=== PATIENT | male | born 1950 | race Caucasian/White ===

== ENCOUNTER 2020-09-05 11:13 | Emergency (ER) | payer BC, MEDICARE ==
--- NOTE | 2020-09-05 12:11 | EDM.PDOC ---
ED HPI GENERAL MEDICAL PROBLEM - General Chief Complaint: Cardiovascular Problem Stated Complaint: BLOOD PRESSURE IS HIGH FROM CLINIC Time Seen by Provider: 09/05/20 12:00 Source of Information: Reports: Patient, Old Records History Limitations: Reports: Other (sent from clinic, no clinic notes or call from the clinic on this referral.) - History of Present Illness INITIAL COMMENTS - FREE TEXT/NARRATIVE: 69 yo male here after he presented to the clinic for a refill of his Indocin for gout and the clinic found his BP was high and sent him to the ER. No one from the clinic notified us. His only sx is intermittent light-headedness which is not new. His gout is under control currently, but he is nearly out ot the Indocin. The clinic tried to send him by ambulance and he refused. Onset: Unknown/Unsure (BP normally not this high) Duration: Other (unknown) Location: Reports: Generalized Quality: Reports: Other (no pain) Severity: Moderate Improves with: Reports: None Worsens with: Reports: None Context: Reports: Other (See HPI) Associated Symptoms: Reports: Other (intermittent mild light-headedness) Treatments LEAD SUSTAINABILITY SPECIALIST: Reports: Other (see below) (none) - Related Data Allergies Allergy/AdvReac Type Severity Reaction Status Date / Time SHRIMP Allergy Swelling Uncoded 04/05/15 10:40 Home Meds: Home Meds Calcium Carb/Magnesium Oxid/D3 [Calcium Magnesium + D] 1 each PO BID 12/12/12 [History] Cyanocobalamin (Vitamin B12) [Vitamin B12] 1,000 mcg PO DAILY 12/12/12 [History] Multivitamin [Multiple Vitamins] 1 each PO DAILY 12/12/12 [History] Vitamin B Complex 100 NO.2 [B100 Balanced] 100 mg PO DAILY 12/12/12 [History] Indomethacin [Indocin] 50 mg PO ASDIRECTED 09/05/20 [History] Metoprolol Succinate 50 mg PO DAILY 09/05/20 [History] Past Medical History Other HEENT History: macular puckering bilat Other Neuro History: bleed in brain- not sure why- no stroke Other Dermatologic History: frozen spots on face - Past Surgical History Other HEENT Surgeries/Procedures: macular repair Other Neurological Surgeries/Procedures: bore holes Other Musculoskeletal Surgeries/Procedures:: knee replace-left scope-right trigger finger ED ROS GENERAL - Review of Systems Review Of Systems: See Below Constitutional: Reports: No Symptoms HEENT: Reports: No Symptoms Respiratory: Reports: No Symptoms Cardiovascular: Reports: Lightheadedness GI/Abdominal: Reports: No Symptoms : Reports: No Symptoms Musculoskeletal: Reports: No Symptoms Skin: Reports: No Symptoms Neurological: Reports: No Symptoms ED EXAM, GENERAL - Physical Exam Exam: See Below Exam Limited By: No Limitations General Appearance: Alert, WD/WN, No Apparent Distress, Obese Eye Exam: Bilateral Eye: Normal Inspection Ears: Normal External Exam, Normal Canal, Hearing Grossly Normal Ear Exam: Bilateral Ear: Auricle Normal, Canal Normal Nose: Normal Inspection, No Blood Throat/Mouth: Normal Inspection, Normal Lips, Normal Oropharynx, Normal Voice, No Airway Compromise Head: Atraumatic, Normocephalic Neck: Normal Inspection Respiratory/Chest: No Respiratory Distress, Lungs Clear, Normal Breath Sounds, No Accessory Muscle Use Cardiovascular: Regular Rate, Rhythm, No Edema Extremities: Normal Inspection, Normal Range of Motion, Non-Tender, No Pedal Edema Neurological: Alert, Oriented, CN II-XII Intact, Normal Cognition, No Motor/Sensory Deficits Psychiatric: Normal Affect, Normal Mood Skin Exam: Warm, Dry, Intact, Normal Color, No Rash Course - Vital Signs Last Recorded V/S: Last Vital Signs Temp 36.6 C 09/05/20 12:44 Pulse 64 09/05/20 11:50 Resp 18 09/05/20 12:44 BP 208/94 H 09/05/20 12:54 Pulse Ox 95 09/05/20 12:44 - Orders/Labs/Meds Labs: Laboratory Tests 09/05/20 Range/Units 12:16 Sodium 142 (140-148) mmol/L Potassium 4.1 (3.6-5.2) mmol/L Chloride 105 (100-108) mmol/L Carbon Dioxide 31 (21-32) mmol/L Anion Gap 6.5 (5.0-14.0) mmol/L BUN 8 (7-18) mg/dL Creatinine 1.0 (0.8-1.3) mg/dL Est Cr Clr Drug Dosing 67.75 mL/min Estimated GFR (MDRD) > 60 (>60) Glucose 117 H (74-106) mg/dL Calcium 8.4 L (8.5-10.1) mg/dL Meds: Medications Discontinued Medications Generic Name Dose Route Start Last Admin Trade Name Marilin PRN Reason Stop Dose Admin Amlodipine Besylate 5 mg 09/05/20 12:25 09/05/20 12:39 Amlodipine 5 Mg Tab PO 09/05/20 12:26 5 mg ONETIME ONE Administration Clonidine HCl 0.1 mg 09/05/20 12:45 09/05/20 12:54 Clonidine 0.1 Mg Tab PO 09/05/20 12:46 0.1 mg ONETIME ONE Administration - Re-Assessments/Exams Free Text/Narrative Re-Assessment/Exam: 09/05/20 13:43 BP 156 Departure - Departure Time of Disposition: 13:43 Disposition: Home, Self-Care 01 Condition: Fair Clinical Impression: HTN, goal below 140/80 Instructions: Hypertension, Adult, [id number] Referrals: Chuyita Beach MD [Primary Care Provider] - Forms: ED Department Discharge Additional Instructions: Take amlodipine 5 mg daily. Take clonidine 0.1 mg every 12 hrs for BP greater than 160. Recheck with your provider in about a week. Avoid salt or salty foods. Sepsis Event Note (ED) - Focused Exam Vital Signs: Vital Signs Temp Pulse Resp BP BP Pulse Ox 09/05/20 12:54 208/94 H 09/05/20 12:44 36.6 C 18 203/97 H 95 09/05/20 12:39 203/97 H 09/05/20 11:50 36.6 C 64 12 193/89 H 93 L
[2020-09-05] MEDS ORDERED: amLODIPine 5 MG Tab PO ONE (12:25)
[2020-09-05] MEDS ORDERED: cloNIDine 0.1 MG Tab PO ONE (12:45)
[2020-09-05 13:47] VITALS: BP 166/84; PULSE 61
== END 2020-09-05 14:00 | disposition home or self-care (01) ==
LOC: JP.ED 11:13
DX: I10 Essential (primary) hypertension (principal); Z91.013 Allergy to seafood
CPT/HCPCS: 36415; 80048; 99283; A9270